=== PATIENT | male | born 1990 ===

== ENCOUNTER 2024-03-30 15:11 | Inpatient (IN) | payer OTHER, SELFPAY ==
[2024-03-24 12:46] VITALS: BMI 25.7
[2024-03-24 14:31] LABS: Hematocrit 43.9 % (39.0-52.0); Hemoglobin 15.8 g/dL (13.0-18.0); Mean Corpuscular Hgb 31.9 pg (27.0-31.0); Mean Corpuscular Volume 88.7 fL (80.0-94.0); Mean Platelet Volume 10.2 fL (7.4-10.4); Platelet Count 228 10^3/uL (130-400); Red Blood Cell Count 4.95 10^6/uL (4.70-6.10); Red Cell Dist. Width 11.3 % (11.5-14.5); White Blood Cell Count 7.4 10^3/uL (4.8-10.8)
[2024-03-24 14:50] LABS: ALT (SGPT) 31 U/L (0-50); AST (SGOT) 27 U/L (17-59); Albumin 4.9 g/dl (3.5-5.0); Alkaline Phosphatase 72 U/L (38-126); Blood Urea Nitrogen 15 mg/dl (9-20); Calcium 9.7 mg/dl (8.4-10.2); Carbon Dioxide 27 mmol/L (22-30); Chloride 102 mmol/L (98-107); Estimated Creatinine Clearance > 125 ml/min; Glucose 65 mg/dl (70-99); Potassium 4.2 mmol/L (3.5-5.1); Sodium 143 mmol/L (135-145); Total Bilirubin 1.8 mg/dl (0.2-1.3); Total Protein 7.4 g/dl (6.3-8.2); eGFR > 60.00
[2024-03-25 14:28] VITALS: BMI 25.7
[2024-03-30 10:14] VITALS: BMI 25.7
[2024-03-30 10:15] VITALS: BP 139/84
[2024-03-30] MEDS: NORMOSOL-R/PLASMALYTE-A 1000 IV ×2 (10:23→17:59)
[2024-03-30] MEDS: SKELAXIN 800 MG PO (10:23)
[2024-03-30] MEDS: TYLENOL 1000 MG PO ×2 (10:23→21:05)
[2024-03-30] MEDS: CELEBREX 200 MG PO (10:23)
[2024-03-30] MEDS: LYRICA 150 MG PO (10:23)
[2024-03-30 14:17] VITALS: BP 139/84; BP 168/86
[2024-03-30] MEDS: DILAUDID 0.5 MG IV ×2 (14:29→14:48)
[2024-03-30] MEDS: ZOFRAN 4 MG IV (14:39)
[2024-03-30] MEDS: COMPAZINE 5 MG IV (15:12)
[2024-03-30] MEDS: TORADOL 15 MG IV ×2 (15:16→22:14)
--- NOTE | 2024-03-30 15:20 | W.PN.UPDATE ---
Update Note
Progress Note Update
Lumbosacral intervertebral disc displacement s/p Left L5-S1 transforaminal interbody fusion w/ Dr Navarrete 03/30/24
- s/p Left L5-S1 discectomy, 05/13/23, w/ Dr Navarrete
DVT prophylaxis - b/l SCDs/TEDs
[2024-03-30] MEDS: ULTRAM 50 MG PO ×2 (17:37→21:06)
[2024-03-30] MEDS: NEURONTIN 300 MG PO ×2 (17:41→21:05)
[2024-03-30] MEDS: ANCEF 5 IV (17:53)
--- NOTE | 2024-03-30 19:10 | PTCARENOTE ---
Pt arrive to [facility] from PACU at 1910 with IVF infusing. Surgical site assessed and dressing is C/D/I. Pt has SCDs on and c/o 4/10 pain. Head to toe complete. Will continue to monitor.
[2024-03-30 19:30] VITALS: BP 155/77
[2024-03-30] MEDS: SENOKOT 17.2 MG PO (21:06)
[2024-03-30] MEDS: COLACE 100 MG PO (21:06)
[2024-03-30] MEDS: TYLENOL PO (21:07)
[2024-03-30 23:16] VITALS: BP 146/77
[2024-03-31 00:26] VITALS: BP 132/59
[2024-03-31] MEDS: NORMOSOL-R/PLASMALYTE-A 1000 IV (02:59)
[2024-03-31] MEDS: ANCEF 5 IV (02:59)
[2024-03-31] MEDS: ULTRAM 50 MG PO ×2 (03:00→09:08)
[2024-03-31] MEDS: TYLENOL 1000 MG PO ×2 (03:00→09:08)
[2024-03-31 03:06] VITALS: BP 134/52
[2024-03-31 06:31] LABS: Hematocrit 40.8 % (39.0-52.0); Hemoglobin 14.8 g/dL (13.0-18.0)
[2024-03-31 07:03] LABS: Blood Urea Nitrogen 13 mg/dl (9-20); Calcium 9.1 mg/dl (8.4-10.2); Carbon Dioxide 27 mmol/L (22-30); Chloride 105 mmol/L (98-107); Estimated Creatinine Clearance > 125 ml/min; Glucose 101 mg/dl (70-99); Potassium 4.7 mmol/L (3.5-5.1); Sodium 142 mmol/L (135-145); eGFR > 60.00
[2024-03-31 07:35] VITALS: BP 137/86
[2024-03-31] MEDS: SENOKOT 17.2 MG PO (08:46)
[2024-03-31] MEDS: COLACE 100 MG PO (08:46)
[2024-03-31] MEDS: NEURONTIN 300 MG PO (08:46)
[2024-03-31 09:42] VITALS: BP 142/83; PULSE 61; O2SAT 99
--- NOTE | 2024-03-31 11:29 | W.PN.ORTHO ---
Today's Communication / Plan
-
D/c today since clinically stable.
Assessment
.
Distal Motor Intact: Yes
Dressing:
Clean, dry and intact.
Assessment:
Lumbosacral intervertebral disc displacement s/p Left L5-S1 transforaminal interbody fusion w/ Dr Navarrete 03/30/24
- s/p Left L5-S1 discectomy, 05/13/23, w/ Dr Navarrete
DVT prophylaxis - b/l SCDs/TEDs
Plan
.
Surgery / Date: Left L5-S1 TFIF w/ [facility] 03/30/24
DVT Prophylaxis: Other (b/l SCDs/TEDs)
Activity:
Out of bed.
PT/OT
Discharge Plan: Home
Subjective
.
.:
Patient resting comfortably in his chair.
Low back pain minimal w/ minimal narcotics.
Denies any new significant complaints.
Eager for potential d/c today.
Vital Signs and Labs
.
Vital Signs and Labs:
Lab Results
03/31/24 05:36
03/31/24 05:36
Temp Pulse Resp BP Pulse Ox
98.0 F 64 18 137/86 99
03/31/24 07:35 03/31/24 07:35 03/31/24 07:35 03/31/24 07:35 03/31/24 07:35
Physical Exam
-
HEENT: No pallor, cyanosis, or jaundice. Throat clear.
NECK: Supple. No JVD.
RESPIRATORY: Lungs clear to auscultation.
CVS: S1, S2 normal. RRR.�
ABDOMEN: Soft, non-tender. No distension.
EXTREMITIES: Strength equal, no calf pain with palpation/dorsiflexion. Calves soft.
ACADEMIC SUPPORT ASSISTANT: AOx3. No focal deficits. water mechanic grossly intact
[2024-03-31 11:30] VITALS: BP 172/91
--- NOTE | 2024-03-31 11:38 | W.DS.TRANS ---
DC Summary - Mri Technologist
-
Discharge Instructions:
Sleep Apnea Risk Low
Discharge Diagnosis/Procedures Lumbosacral intervertebral disc displacement s/p
Left L5-S1 transforaminal interbody fusion w/
Dr Navarrete 03/30/24
Diet Regular
Activity As tolerated
Additional Activity No heavy lifting >10 lbs
Driving Restrictions Not until seen by your Dr
Bathing Restrictions OK to shower in 4 days
Instructions:
Stand-Alone Forms: [facility]
Changes to Home Medications: Yes
Discharge Medications:
DC Medications w/original date entered in [facility]
Saccharomyces boulardii 250 mg capsule (Florastor) 250 mg PO BID #10 caps 03/31/24
acetaminophen 500 mg tablet (Tylenol Extra Strength) 1,000 mg (2 x 500 mg) PO Q6H #60 tabs 03/31/24
cephalexin 500 mg capsule 500 mg PO QID #20 caps 03/31/24
docusate sodium 100 mg capsule 100 mg PO BID #30 caps 03/31/24
gabapentin 300 mg capsule 300 mg PO TID neuropathic pain #1 cap 03/31/24
ondansetron HCl 4 mg tablet 4 mg PO Q6H PRN nausea and vomiting #30 tabs 03/31/24
sennosides 8.6 mg tablet (Senna Laxative) 17.2 mg (2 x 8.6 mg) PO BID #30 tabs 03/31/24
tramadol 50 mg tablet 50 - 100 mg (1 - 2 x 50 mg) PO Q6H PRN moderate-severe pain #30 tabs 03/31/24
Home Medication Changes
Saccharomyces boulardii 250 mg capsule (Florastor) 250 mg PO BID #10 caps 03/31/24
acetaminophen 500 mg tablet (Tylenol Extra Strength) 1,000 mg (2 x 500 mg) PO Q6H #60 tabs 03/31/24
cephalexin 500 mg capsule 500 mg PO QID #20 caps 03/31/24
docusate sodium 100 mg capsule 100 mg PO BID #30 caps 03/31/24
ondansetron HCl 4 mg tablet 4 mg PO Q6H PRN nausea and vomiting #30 tabs 03/31/24
sennosides 8.6 mg tablet (Senna Laxative) 17.2 mg (2 x 8.6 mg) PO BID #30 tabs 03/31/24
tramadol 50 mg tablet 50 - 100 mg (1 - 2 x 50 mg) PO Q6H PRN moderate-severe pain #30 tabs 03/31/24
Pending Results: No
--- NOTE | 2024-03-31 11:57 | CM ---
Met with patient and .
IA Completed. No neeDS
PCP: Marycarmen Maier
Pharmacy: [facility]
PLAN: Discharge to home, no needs.
to transport
== END 2024-03-31 11:59 | disposition home or self-care (01) | DRG 460 ==
LOC: 2 SOUTH 15:11
PROVIDERS: Physician Assistant; ADMITTING PHYSICIAN Orthopaedic Surgery Orthopaedic Surgery of the Spine
PROC: 0SB40ZZ Excision of Lumbosacral Disc, Open Approach (ICD-10-PCS; 2024-03-30)
PROC: 0SG30AJ Fusion of Lumbosacral Joint with Interbody Fusion Device, Posterior Approach, Anterior Column, Open Approach (ICD-10-PCS; 2024-03-30)
DX: M51.27 Other intervertebral disc displacement, lumbosacral region (principal); Z79.899 Other long term (current) drug therapy; Z87.891 Personal history of nicotine dependence
CPT/HCPCS: 36415; 72100; 76000; 80048; 80053; 85014; 85018; 85027; 87070; 97162; 97166; 97530; 97535